=== PATIENT | female | born 1985 | race Caucasian/White ===

== ENCOUNTER 2021-06-23 21:33 | Inpatient (IN) ==
[2021-06-24] MEDS ORDERED: Acetaminophen 325 MG TABLET PO PRN (02:53)
[2021-06-24] MEDS ORDERED: Ondansetron 4 MG/2 ML VIAL IVP PRN (02:53)
[2021-06-24] MEDS ORDERED: Melatonin 3 MG TABLET PO PRN (02:53)
[2021-06-24] MEDS ORDERED: Naloxone 0.4 MG/ML INJ IVP PRN (02:53)
[2021-06-24] MEDS ORDERED: Benzonatate 100 MG CAPSULE PO PRN (02:57)
[2021-06-24] MEDS: Ipratropium 1 PUFF INHALER IH SCH ×5 (04:49→20:44)
[2021-06-24] MEDS ORDERED: Remdesivir 200 MG in 0.9 % Sodium Chloride 100 ML IVPB ONE (05:00)
[2021-06-24] MEDS ORDERED: *HR* Heparin 5,000 UNIT/ML VIAL SQ SCH (06:00)
[2021-06-24 06:42] LABS: Basophils % 0.4 %; Hematocrit 45.8 % (35.3-44.9); Hemoglobin 15.3 g/dL (11.5-15.4); Immature Granulocytes % 1.2 % (0-4); Lymphocytes # 0.6 K/mcL (0.6-4.6); Mean Corpuscular HGB Conc 33.4 g/dL (31.6-35.5); Mean Corpuscular Hemoglobin 31.2 pg (28.0-33.3); Mean Corpuscular Volume 93.3 fL (83.0-100.0); Mean Platelet Volume 11.1 fL (9.4-12.4); Monocytes # 0.1 K/mcL (0.0-1.3); Monocytes % 5.7 %; Neutrophils # 1.7 K/mcL (1.6-8.9); Platelet Count 144 K/mcL (140-400); Red Blood Count 4.91 M/mcL (3.82-4.97); Red Cell Distribution Width 13.1 % (11.5-14.5); Segmented Neutrophils % 68.7 %; White Blood Count 2.5 K/mcL (4.3-11.1)
[2021-06-24 10:26] LABS: Alanine Aminotransferase 24 Units/L (7-52); Albumin 3.5 g/dL (3.5-5.7); Alkaline Phosphatase 57 Units/L (34-104); Aspartate Amino Transferase 42 Units/L (13-39); BUN/Creatinine Ratio 10 (6-26); Bilirubin,Direct 0.1 mg/dL (0.0-0.2); Bilirubin,Indirect 0.3 mg/dL (0.0-1.0); Bilirubin,Total 0.4 mg/dL (0.3-1.0); Blood Urea Nitrogen 10 mg/dL (6-20); Calcium 8.6 mg/dL (8.6-10.3); Carbon Dioxide 24 mEq/L (23-29); Chloride 98 mEq/L (98-107); Globulin 3.6 g/dL (2.4-3.5); Glucose 194 mg/dL (70-105); Magnesium 2.2 mg/dL (1.6-2.6); Osmolality,Calculated 282 (280-300); Phosphorous 2.8 mg/dL (2.7-4.5); Potassium 3.7 mEq/L (3.5-5.1); Sodium 134 mEq/L (136-145); Total Protein 7.1 g/dL (6.4-8.9); eGFR For African Americans > 60 (> 60); eGFR For Non-African Americans > 60 (> 60)
[2021-06-24 12:52] LABS: C-Reactive Protein 172 mg/L (Less than 10)
[2021-06-24] MEDS ORDERED: cloNIDine HCL 0.1 MG TABLET PO PRN (16:53)
[2021-06-24] MEDS: *HR* Enoxaparin 40 MG/0.4 ML SYRINGE SQ SCH (19:14)
[2021-06-24] MEDS: BuPROPion SR (12 HR) 150 MG TABLET PO SCH (19:14)
[2021-06-24] MEDS: clonazePAM 0.5 MG TABLET PO PRN (21:00)
[2021-06-24] MEDS ORDERED: *HR* LORazepam 2 MG/ML VIAL IVP ONE (22:47)
[2021-06-25] MEDS: Ipratropium 1 PUFF INHALER IH SCH ×6 (00:23→21:03)
[2021-06-25] MEDS: Remdesivir 100 MG in 0.9 % Sodium Chloride 100 ML IVPB SCH (03:19)
[2021-06-25 08:25] LABS: Basophils % 0.1 %; Hematocrit 43.2 % (35.3-44.9); Immature Granulocytes % 0.7 % (0-4); Lymphocytes # 1.1 K/mcL (0.6-4.6); Lymphocytes % 16.5 %; Mean Corpuscular HGB Conc 34.7 g/dL (31.6-35.5); Mean Corpuscular Hemoglobin 31.2 pg (28.0-33.3); Mean Corpuscular Volume 89.8 fL (83.0-100.0); Monocytes # 0.9 K/mcL (0.0-1.3); Monocytes % 13.3 %; Neutrophils # 4.8 K/mcL (1.6-8.9); Platelet Count 243 K/mcL (140-400); Red Blood Count 4.81 M/mcL (3.82-4.97); Red Cell Distribution Width 12.8 % (11.5-14.5); Segmented Neutrophils % 69.4 %
[2021-06-25 08:27] LABS: White Blood Count 6.9 K/mcL (4.3-11.1)
[2021-06-25 08:44] LABS: Alanine Aminotransferase 34 Units/L (7-52); Albumin 3.5 g/dL (3.5-5.7); Alkaline Phosphatase 65 Units/L (34-104); Aspartate Amino Transferase 46 Units/L (13-39); BUN/Creatinine Ratio 17 (6-26); Bilirubin,Direct 0.2 mg/dL (0.0-0.2); Bilirubin,Indirect 0.3 mg/dL (0.0-1.0); Bilirubin,Total 0.5 mg/dL (0.3-1.0); Blood Urea Nitrogen 17 mg/dL (6-20); Calcium 8.7 mg/dL (8.6-10.3); Carbon Dioxide 27 mEq/L (23-29); Chloride 99 mEq/L (98-107); Globulin 3.5 g/dL (2.4-3.5); Glucose 209 mg/dL (70-105); Osmolality,Calculated 288 (280-300); Potassium 3.8 mEq/L (3.5-5.1); Sodium 135 mEq/L (136-145); eGFR For African Americans > 60 (> 60); eGFR For Non-African Americans > 60 (> 60)
[2021-06-25] MEDS: BuPROPion SR (12 HR) 150 MG TABLET PO SCH ×2 (09:24→21:03)
[2021-06-25] MEDS: *HR* Enoxaparin 40 MG/0.4 ML SYRINGE SQ SCH ×2 (09:24→21:02)
[2021-06-25 12:51] LABS: Influenza A PCR Negative (Negative); Influenza B PCR Negative (Negative); Resp. Syncytial Virus PCR Negative (Negative)
[2021-06-25 12:52] LABS: SARS-CoV-2 by PCR (In House) Negative (Negative)
[2021-06-26] MEDS: Ipratropium 1 PUFF INHALER IH SCH ×7 (00:12→23:03)
[2021-06-26] MEDS: Remdesivir 100 MG in 0.9 % Sodium Chloride 100 ML IVPB SCH (04:23)
[2021-06-26 06:37] LABS: Basophils % 0.2 %; Hematocrit 41.9 % (35.3-44.9); Hemoglobin 14.3 g/dL (11.5-15.4); Lymphocytes # 1.2 K/mcL (0.6-4.6); Lymphocytes % 18.5 %; Mean Corpuscular HGB Conc 34.1 g/dL (31.6-35.5); Mean Corpuscular Volume 90.9 fL (83.0-100.0); Mean Platelet Volume 10.2 fL (9.4-12.4); Monocytes # 0.9 K/mcL (0.0-1.3); Monocytes % 14.4 %; Neutrophils # 4.1 K/mcL (1.6-8.9); Platelet Count 248 K/mcL (140-400); Red Blood Count 4.61 M/mcL (3.82-4.97); Red Cell Distribution Width 12.7 % (11.5-14.5); Segmented Neutrophils % 65.9 %; White Blood Count 6.2 K/mcL (4.3-11.1)
[2021-06-26 07:03] LABS: Albumin 3.4 g/dL (3.5-5.7); Albumin/Globulin Ratio 1.1 (1.1-2.2); Bilirubin,Direct 0.1 mg/dL (0.0-0.2); Bilirubin,Indirect 0.4 mg/dL (0.0-1.0); Bilirubin,Total 0.5 mg/dL (0.3-1.0); Globulin 3.2 g/dL (2.4-3.5); Total Protein 6.6 g/dL (6.4-8.9)
[2021-06-26 07:04] LABS: BUN/Creatinine Ratio 18 (6-26); Blood Urea Nitrogen 17 mg/dL (6-20); Calcium 8.5 mg/dL (8.6-10.3); Carbon Dioxide 29 mEq/L (23-29); Chloride 100 mEq/L (98-107); Glucose 245 mg/dL (70-105); Osmolality,Calculated 296 (280-300); Potassium 3.7 mEq/L (3.5-5.1); Sodium 138 mEq/L (136-145); eGFR For African Americans > 60 (> 60); eGFR For Non-African Americans > 60 (> 60)
[2021-06-26] MEDS: BuPROPion SR (12 HR) 150 MG TABLET PO SCH ×2 (09:21→21:20)
[2021-06-26] MEDS: *HR* Enoxaparin 40 MG/0.4 ML SYRINGE SQ SCH ×2 (09:21→21:20)
[2021-06-26] MEDS ORDERED: 0.9 % Sodium Chloride 1,000 ML IVC SCH (14:00)
[2021-06-26] MEDS: clonazePAM 0.5 MG TABLET PO PRN (21:20)
[2021-06-27] MEDS: Remdesivir 100 MG in 0.9 % Sodium Chloride 100 ML IVPB SCH (04:07)
[2021-06-27] MEDS: Ipratropium 1 PUFF INHALER IH SCH ×5 (04:15→21:01)
[2021-06-27 04:46] LABS: Hematocrit 39.5 % (35.3-44.9); Hemoglobin 13.5 g/dL (11.5-15.4); Lymphocytes # 0.8 K/mcL (0.6-4.6); Mean Corpuscular HGB Conc 34.2 g/dL (31.6-35.5); Mean Corpuscular Hemoglobin 31.3 pg (28.0-33.3); Mean Corpuscular Volume 91.6 fL (83.0-100.0); Mean Platelet Volume 9.9 fL (9.4-12.4); Monocytes # 0.5 K/mcL (0.0-1.3); Monocytes % 12.6 %; Neutrophils # 2.8 K/mcL (1.6-8.9); Platelet Count 224 K/mcL (140-400); Red Blood Count 4.31 M/mcL (3.82-4.97); Red Cell Distribution Width 12.5 % (11.5-14.5); Segmented Neutrophils % 66.4 %; White Blood Count 4.2 K/mcL (4.3-11.1)
[2021-06-27 05:10] LABS: Albumin 3.1 g/dL (3.5-5.7); BUN/Creatinine Ratio 15 (6-26); Bilirubin,Direct 0.1 mg/dL (0.0-0.2); Bilirubin,Indirect 0.3 mg/dL (0.0-1.0); Bilirubin,Total 0.4 mg/dL (0.3-1.0); Blood Urea Nitrogen 13 mg/dL (6-20); Calcium 8.2 mg/dL (8.6-10.3); Carbon Dioxide 30 mEq/L (23-29); Chloride 102 mEq/L (98-107); Globulin 3.1 g/dL (2.4-3.5); Glucose 247 mg/dL (70-105); Osmolality,Calculated 292 (280-300); Potassium 3.7 mEq/L (3.5-5.1); Sodium 137 mEq/L (136-145); Total Protein 6.2 g/dL (6.4-8.9); eGFR For African Americans > 60 (> 60); eGFR For Non-African Americans > 60 (> 60)
[2021-06-27] MEDS: BuPROPion SR (12 HR) 150 MG TABLET PO SCH ×2 (09:12→20:34)
[2021-06-27] MEDS: *HR* Enoxaparin 40 MG/0.4 ML SYRINGE SQ SCH ×2 (09:12→20:34)
[2021-06-27] MEDS ORDERED: traZODone 50 MG TABLET PO SCH (21:00)
[2021-06-28] MEDS: Ipratropium 1 PUFF INHALER IH SCH ×5 (00:05→15:56)
[2021-06-28] MEDS: Remdesivir 100 MG in 0.9 % Sodium Chloride 100 ML IVPB SCH (04:41)
[2021-06-28 05:54] LABS: Albumin 3.4 g/dL (3.5-5.7); Albumin/Globulin Ratio 1.2 (1.1-2.2); Bilirubin,Direct 0.2 mg/dL (0.0-0.2); Bilirubin,Indirect 0.4 mg/dL (0.0-1.0); Bilirubin,Total 0.6 mg/dL (0.3-1.0); Globulin 2.9 g/dL (2.4-3.5); Total Protein 6.3 g/dL (6.4-8.9)
[2021-06-28] MEDS: BuPROPion SR (12 HR) 150 MG TABLET PO SCH (07:51)
[2021-06-28] MEDS: *HR* Enoxaparin 40 MG/0.4 ML SYRINGE SQ SCH (07:52)
[2021-06-28 08:49] VITALS: BP 139/72; PULSE 84; TEMP 98.6
[2021-06-28 11:15] LABS: Estimated Average Glucose 148 mg/dl; Hemoglobin A1C 6.8 %
[2021-06-28 15:57] VITALS: O2SAT 95
== END 2021-06-28 19:11 | disposition home or self-care (01) | DRG 137 ==
LOC: 3ANU → SUATTDRO 06-24 01:49
PROVIDERS: ADMIT Internal Medicine; ATTEND Student in an Organized Health Care Education/Training Program

== ENCOUNTER 2021-06-28 19:45 | Inpatient (IN) ==
[2021-06-28] MEDS ORDERED: *HR* LORazepam 2 MG/ML VIAL IM PRN (21:38)
[2021-06-28] MEDS ORDERED: hydrOXYzine pamoate 25 MG CAPSULE PO PRN (21:38)
[2021-06-28] MEDS ORDERED: *HR* LORazepam 1 MG TABLET PO PRN (21:38)
[2021-06-28] MEDS ORDERED: Mag Hydrox/Al Hydrox/Simeth 30 ML UDC PO PRN (21:38)
[2021-06-28] MEDS ORDERED: haloperidoL 5 MG TABLET PO PRN (21:38)
[2021-06-28] MEDS ORDERED: Acetaminophen 325 MG TABLET PO PRN (21:38)
[2021-06-28] MEDS ORDERED: Haloperidol Lactate 5 MG/ML VIAL IM PRN (21:38)
[2021-06-28] MEDS ORDERED: MOM Conc 10 ML UD.LIQ PO PRN (21:38)
[2021-06-28] MEDS ORDERED: cloNIDine HCL 0.1 MG TABLET PO PRN (21:42)
[2021-06-28] MEDS ORDERED: Benzonatate 100 MG CAPSULE PO PRN (21:48)
[2021-06-28] MEDS ORDERED: Melatonin 3 MG TABLET PO PRN (21:51)
[2021-06-28] MEDS: BuPROPion SR (12 HR) 150 MG TABLET PO SCH (22:46)
[2021-06-28] MEDS: traZODone 50 MG TABLET PO SCH (22:46)
[2021-06-28] MEDS: clonazePAM 0.5 MG TABLET PO PRN (22:53)
[2021-06-29] MEDS: dexAMETHasone 4 MG TABLET PO SCH (09:01)
[2021-06-29] MEDS: BuPROPion SR (12 HR) 150 MG TABLET PO SCH (09:01)
[2021-06-29] MEDS ORDERED: BuPROPion XL (24 HR) 150 MG TABLET PO ONE (09:45)
[2021-06-29] MEDS: traZODone 50 MG TABLET PO SCH (20:42)
[2021-06-29] MEDS: clonazePAM 0.5 MG TABLET PO PRN (20:42)
[2021-06-30] MEDS: BuPROPion XL (24 HR) 150 MG TABLET PO SCH (08:22)
[2021-06-30] MEDS: dexAMETHasone 4 MG TABLET PO SCH (08:22)
[2021-06-30] MEDS: clonazePAM 0.5 MG TABLET PO PRN (21:29)
[2021-06-30] MEDS: traZODone 50 MG TABLET PO SCH (21:29)
[2021-07-01] MEDS: clonazePAM 0.5 MG TABLET PO PRN (06:08)
[2021-07-01] MEDS: BuPROPion XL (24 HR) 150 MG TABLET PO SCH (08:22)
[2021-07-01] MEDS: dexAMETHasone 4 MG TABLET PO SCH (08:22)
[2021-07-01 09:00] VITALS: BP 140/101; PULSE 92; TEMP 97.9; O2SAT 96
== END 2021-07-01 16:20 | disposition home or self-care (01) | DRG 751 ==
LOC: 1ANU 19:45
PROVIDERS: ADMIT Psychiatry & Neurology Psychiatry; ATTEND Psychiatry & Neurology Psychiatry